=== PATIENT | female | born 1990 | race Two or more races ===

== ENCOUNTER 2018-02-08 04:00 | Inpatient (IN) | payer MEDICAID ==
[2018-02-08] VITALS (10 sets, daily range): BP systolic 111–139; BP diastolic 60–89
[~2018-02-08] VITALS: Ht 165.1 cm; Wt 72.6 kg
[~2018-02-08 04:00] MED LIST: PREN-96 PO
[2018-02-08] MEDS: LACTATED RINGER'S 1,000 ML IV SCH ×3 (04:15→20:15)
[2018-02-08 05:35] LABS: Basophils # (auto) 0.1 uL; Eosinophils # (auto) 0.1 uL; Eosinophils % (auto) 0.6 % (0.0-7.0); Hemoglobin 10.9 g/dL (12.2-16.2); Mean Corpuscular Volume 75.1 fL (80.0-100.0); Monocytes # (auto) 0.6 uL; Neutrophils # (auto) 6.7 uL; Nucleated Red Blood Cells % 0.2 %
[2018-02-08 05:38] LABS: Basophils % (auto) 1.1 % (0.0-2.0); Hematocrit 33.3 % (36.0-46.0); Lymphocytes # (auto) 3.7 uL; Lymphocytes % (auto) 33.3 % (10.0-50.0); Mean Corpuscular Hemoglobin 24.5 pg (28.0-32.0); Mean Corpuscular Hgb Conc. 32.6 g/dL (32.0-36.0); Platelet Count (auto) 304 10^3/uL (140-450); Red Blood Cells 4.43 10^6/uL (4.0-5.20); Red Cell Distribution Width 16.1 % (11.8-14.3); White Blood Cell 11.1 10^3/uL (4.4-10.8)
[2018-02-08 05:50] LABS: Urine Bacteria FEW /hpf (None Seen); Urine Blood Negative /uL (Negative); Urine Mucus FEW (None Seen); Urine Specific Gravity 1.022 (1.001-1.035); Urine WBC 7 /hpf (0 - 5)
[2018-02-08 05:51] LABS: INR 0.87 (0.9-1.15); Partial Thromboplastin Time 24.3 sec (23.78-33.04); Prothrombin Time 9.4 sec (9.27-12.13)
[2018-02-08 06:01] LABS: Albumin 2.7 g/dL (3.4-5.0); BUN/Creatinine Ratio 17.3; Bilirubin, Total 0.3 mg/dL (0.2-1.0); Calcium 8.9 mg/dL (8.5-10.1); Potassium 3.7 mmol/L (3.5-5.1); Total Protein 7.1 g/dL (6.4-8.2)
[2018-02-08] MEDS ORDERED: TETRACAINE 1% INJ 2 ML VIAL IJ ONE (07:22)
[2018-02-08] MEDS ORDERED: MORPHINE SULF(PF) 0.5MG/ML 10ML VIAL ONE (07:23)
[2018-02-08] MEDS ORDERED: fentaNYL CITRATE 100 MCG/2 ML VL ONE (07:23)
[2018-02-08] MEDS ORDERED: CLINDAMYCIN 600MG IV 50 ML IV ONE (07:55)
[2018-02-08] MEDS ORDERED: LACT. RINGERS/OXYTOCIN 20UNITS 1,000 ML IV SCH (08:09)
[2018-02-08] MEDS ORDERED: KETOROLAC TROMETH 30 MG/ML 1ML VIAL IV PRN (08:15)
[2018-02-08] MEDS ORDERED: ONDANSETRON HCL 4 MG/2 ML VIAL IV PRN ×2 (08:15→08:45)
[2018-02-08] MEDS ORDERED: MEPERIDINE HCL (50 MG/ML) 1 ML VIAL IM PRN (08:30)
[2018-02-08] MEDS ORDERED: PROMETHAZINE HCL 25 MG/ML 1ML IV PRN (08:30)
[2018-02-08] MEDS ORDERED: diphenhdrAMINE HCL 50 MG/1 ML VL IV PRN (08:45)
[2018-02-08] MEDS ORDERED: NALOXONE HCL 0.4 MG/ML VIAL IV PRN (08:45)
[2018-02-08] MEDS ORDERED: CLINDAMYCIN 900MG IV 50 ML IV SCH (09:00)
[2018-02-08] MEDS: CLINDAMYCIN 900MG IV 50 ML IV SCH ×2 (16:07→23:50)
[2018-02-08] MEDS: KETOROLAC TROMETH 30 MG/ML 1ML VIAL IV PRN ×2 (16:08→22:42)
[2018-02-08 20:19] LABS: Basophils # (auto) 0 uL; Basophils % (auto) 0.3 % (0.0-2.0); Eosinophils # (auto) 0 uL; Mean Corpuscular Hemoglobin 24.1 pg (28.0-32.0)
[2018-02-08 20:22] LABS: Eosinophils % (auto) 0.1 % (0.0-7.0); Hematocrit 30.7 % (36.0-46.0); Hemoglobin 9.7 g/dL (12.2-16.2); Lymphocytes # (auto) 2.4 uL; Mean Corpuscular Hgb Conc. 31.7 g/dL (32.0-36.0); Mean Corpuscular Volume 75.8 fL (80.0-100.0); Monocytes # (auto) 0.6 uL; Monocytes % (auto) 4.6 % (0.0-12.0); Neutrophils # (auto) 10.5 uL; Platelet Count (auto) 298 10^3/uL (140-450); Red Blood Cells 4.04 10^6/uL (4.0-5.20); Red Cell Distribution Width 16.5 % (11.8-14.3); White Blood Cell 13.6 10^3/uL (4.4-10.8)
[2018-02-09 03:00] VITALS: BP 118/81
[2018-02-09] MEDS: LACTATED RINGER'S 1,000 ML IV SCH ×3 (04:15→20:15)
[2018-02-09 05:06] LABS: RPR Non Reactive (Non Reactive)
[2018-02-09] MEDS: KETOROLAC TROMETH 30 MG/ML 1ML VIAL IV PRN (05:33)
[2018-02-09 07:23] LABS: Basophils # (auto) 0 uL; Basophils % (auto) 0.3 % (0.0-2.0); Eosinophils # (auto) 0 uL; Eosinophils % (auto) 0.2 % (0.0-7.0); Hemoglobin 9.9 g/dL (12.2-16.2); Lymphocytes # (auto) 1.8 uL; Monocytes # (auto) 0.6 uL; Neutrophils # (auto) 10.9 uL; Platelet Count (auto) 304 10^3/uL (140-450)
[2018-02-09 07:25] LABS: Hematocrit 30.6 % (36.0-46.0); Lymphocytes % (auto) 13.8 % (10.0-50.0); Mean Corpuscular Hemoglobin 24.3 pg (28.0-32.0); Mean Corpuscular Hgb Conc. 32.4 g/dL (32.0-36.0); Mean Corpuscular Volume 74.8 fL (80.0-100.0); Monocytes % (auto) 4.1 % (0.0-12.0); Neutrophils % (auto) 81.6 % (37.0-80.0); Nucleated Red Blood Cells % 0.1 %; Red Blood Cells 4.08 10^6/uL (4.0-5.20); Red Cell Distribution Width 16.4 % (11.8-14.3); White Blood Cell 13.4 10^3/uL (4.4-10.8)
[2018-02-09 07:27] VITALS: BP 114/69
[2018-02-09] MEDS: CLINDAMYCIN 900MG IV 50 ML IV SCH ×2 (08:00→16:00)
[2018-02-09] MEDS ORDERED: HYDROcodone-ACET 5/325MG TAB PO PRN (08:15)
[2018-02-09] MEDS ORDERED: BISACODYL 10 MG RECT SUPP PR PRN (08:15)
[2018-02-09] MEDS: FERROUS SULFATE 325 MG TAB PO SCH ×2 (09:53→22:00)
[2018-02-09] MEDS: DOCUSATE SOD 100 MG CAP PO SCH ×2 (09:53→22:00)
[2018-02-09] MEDS: DOCUSATE CALCIUM 240 MG CAP PO SCH (09:54)
[2018-02-09 11:15] VITALS: BP 114/72
[2018-02-09] MEDS: SIMETHICONE 80 MG CHEWABLE TABLET PO SCH ×3 (12:00→22:00)
[2018-02-09] MEDS: HYDROcodone-ACET 5/325MG TAB PO PRN (13:50)
[2018-02-09 14:30] VITALS: BP 122/85
[2018-02-09 19:00] VITALS: BP 128/73
[2018-02-09] MEDS: IBUPROFEN 800 MG TAB PO PRN (20:35)
[2018-02-09 23:00] VITALS: BP 114/69
[2018-02-10] MEDS: CLINDAMYCIN 900MG IV 50 ML IV SCH
[2018-02-10] MEDS: HYDROcodone-ACET 5/325MG TAB PO PRN ×2 (03:16→17:02)
[2018-02-10 03:30] VITALS: BP 124/78
[2018-02-10] MEDS: LACTATED RINGER'S 1,000 ML IV SCH ×2 (04:08→20:15)
[2018-02-10] MEDS: SIMETHICONE 80 MG CHEWABLE TABLET PO SCH ×4 (05:40→22:30)
[2018-02-10] MEDS: IBUPROFEN 800 MG TAB PO PRN ×2 (05:40→13:54)
[2018-02-10 06:55] VITALS: BP 127/77
[2018-02-10] MEDS: DOCUSATE SOD 100 MG CAP PO SCH ×2 (09:45→22:30)
[2018-02-10] MEDS: FERROUS SULFATE 325 MG TAB PO SCH ×2 (09:45→22:30)
[2018-02-10] MEDS: DOCUSATE CALCIUM 240 MG CAP PO SCH (09:45)
[2018-02-10 11:00] VITALS: BP 122/86
[2018-02-10 15:00] VITALS: BP 124/77
[2018-02-10 19:00] VITALS: BP 123/76
[2018-02-10 23:00] VITALS: BP 112/72
[2018-02-11] MEDS: IBUPROFEN 800 MG TAB PO PRN (02:50)
[2018-02-11 03:00] VITALS: BP 107/65
[2018-02-11] MEDS: LACTATED RINGER'S 1,000 ML IV SCH (04:15)
[2018-02-11] MEDS: SIMETHICONE 80 MG CHEWABLE TABLET PO SCH (05:35)
[2018-02-11] MEDS: HYDROcodone-ACET 5/325MG TAB PO PRN (05:35)
[2018-02-11 06:36] VITALS: BP 129/85
== END 2018-02-11 09:55 | disposition home or self-care (01) | DRG 540 ==
LOC: LDRP 04:00
PROVIDERS: ADMIT Obstetrics & Gynecology; ATTEND Obstetrics & Gynecology
PROC: 10D00Z1 Extraction of Products of Conception, Low, Open Approach (ICD-10-PCS; principal; 2018-02-08 07:25)
DX: O34.211 Maternal care for low transverse scar from previous cesarean delivery (principal); O69.81X0 Labor and delivery complicated by cord around neck, without compression, not applicable or unspecified; Z37.0 Single live birth; Z3A.39 39 weeks gestation of pregnancy; Z88.0 Allergy status to penicillin
CPT/HCPCS: 36415; 51702; 59025; 80053; 81001; 85025; 85610; 85730; 86592; 86850; 86900; 86901; 94760; 96365; 96366; 96374; 96375; J1885; J3490

== ENCOUNTER → 2020-05-15 | Outpatient (CLI) | payer MEDICAID ==
[~2020-05-15] MED LIST changes: +CEPH250C PO
--- NOTE | 2020-05-15 10:23 | NUR ---
PT CONSENTED FOR PRE OP COVID TESTING, COVID IN HOUSE SPECIMEN COLLECTED.
== END | disposition home or self-care (01) ==
LOC: LDRP 09:54 → UNDOADMOB 09:54 → LDRP 09:55 → XYW 10:00 → UNDODISOB 10:15 → EDSTATUS 05-30 11:07
PROVIDERS: ATTEND Specialist
DX: Z20.828 Contact with and (suspected) exposure to other viral communicable diseases (principal)
CPT/HCPCS: G0378

== ENCOUNTER 2020-05-17 09:35 | Observation (INO) | payer MEDICAID ==
[~2020-05-17 09:35] MED LIST changes: -CEPH250C PO
[2020-05-17] MEDS ORDERED: CEPH250C PO (10:53)
== END 2020-05-17 10:54 | disposition home or self-care (01) ==
LOC: LDRP 09:35
PROVIDERS: ADMIT Specialist; ATTEND Specialist
DX: O46.93 Antepartum hemorrhage, unspecified, third trimester (principal); Z3A.38 38 weeks gestation of pregnancy
CPT/HCPCS: 59025; 81002; G0378

== ENCOUNTER 2020-05-20 08:41 | Inpatient (IN) | payer MEDICAID ==
[2020-05-20] VITALS (14 sets, daily range): BP systolic 90–123; BP diastolic 53–93
[~2020-05-20] VITALS: Ht 165.1 cm; Wt 68.0 kg
[~2020-05-20 08:41] MED LIST changes: +CEPH250C PO
[2020-05-20] MEDS ORDERED: LACTATED RINGER'S 1,000 ML IV ONE (09:00)
[2020-05-20 09:45] LABS: Hemoglobin 10.4 g/dL (12.2-16.2)
[2020-05-20 09:49] LABS: Basophils # (auto) 0.1 10 ^3/uL (0-0.2); Basophils % (auto) 0.5 % (0.0-2.0); Eosinophils # (auto) 0.1 10 ^3/uL (0-0.8); Eosinophils % (auto) 1.2 % (0.0-7.0); Hematocrit 32.6 % (36.0-46.0); Lymphocytes % (auto) 18.3 % (10.0-50.0); Mean Corpuscular Hemoglobin 23.5 pg (28.0-32.0); Mean Corpuscular Volume 73.5 fL (80.0-100.0); Monocytes # (auto) 0.5 10 ^3/uL (0-1.3); Monocytes % (auto) 4.4 % (0.0-12.0); Neutrophils # (auto) 8.2 10 ^3/uL (1.6-8.6); Neutrophils % (auto) 75.6 % (37.0-80.0); Nucleated Red Blood Cells % 0.2 %; Platelet Count (auto) 398 10^3/uL (140-450); Red Blood Cells 4.44 10^6/uL (4.0-5.20); Red Cell Distribution Width 17.1 % (11.8-14.3); White Blood Cell 10.8 10^3/uL (4.4-10.8)
[2020-05-20 10:00] LABS: Albumin 2.5 g/dL (3.4-5.0); Calcium 8.3 mg/dL (8.5-10.1)
[2020-05-20 10:04] LABS: BUN/Creatinine Ratio 17.3; Bilirubin, Total 0.4 mg/dL (0.2-1.0); Total Protein 6.8 g/dL (6.4-8.2)
[2020-05-20 10:05] LABS: Urine Bacteria MOD /hpf (None Seen); Urine Blood 3+ /uL (Negative); Urine Budding Yeast OCCASIONAL /hpf (None Seen); Urine Mucus FEW (None Seen); Urine Specific Gravity 1.025 (1.001-1.035); Urine WBC 44 /hpf (0 - 5)
[2020-05-20 10:34] LABS: INR 0.93 (0.9-1.15); Partial Thromboplastin Time 22.5 sec (23.0-31.2)
[2020-05-20] MEDS ORDERED: TETRACAINE 1% INJ 2 ML VIAL IJ ONE (12:08)
[2020-05-20] MEDS ORDERED: ceFAZolin 1GM/50ML 50 ML IV ONE (12:37)
[2020-05-20] MEDS ORDERED: LACT. RINGERS/OXYTOCIN 20UNITS 1,000 ML IV ONE (13:15)
[2020-05-20] MEDS ORDERED: GUM (CHEWING) 1 GUM CHEW CHEW ONE (13:15)
[2020-05-20] MEDS ORDERED: ACETAMINOPHEN IV 1000 MG/100ML (10MG/ML) IV PRN (13:15)
[2020-05-20] MEDS ORDERED: ONDANSETRON HCL 4 MG/2 ML VIAL IV PRN ×3 (13:15→18:00)
[2020-05-20] MEDS ORDERED: MORPHINE SULFATE 4 MG/ML SYR/VIAL IV PRN (13:15)
[2020-05-20] MEDS ORDERED: NALBUPHINE HCL 10 MG/1ml INJECTION SUBCUT ONE (14:00)
[2020-05-20] MEDS ORDERED: HYDROmorphone HCL 2 MG/ML VL IV PRN (14:00)
[2020-05-20] MEDS ORDERED: NALOXONE HCL 0.4 MG/ML VIAL IV PRN (14:00)
[2020-05-20] MEDS ORDERED: ePHEDrine SULFATE 50 MG/ML AMP IV PRN (14:00)
[2020-05-20] MEDS ORDERED: CLINDAMYCIN 600MG IV 50 ML IV SCH ×2 (14:00)
[2020-05-20] MEDS ORDERED: diphenhdrAMINE HCL 50 MG/1 ML VL IV PRN (14:00)
[2020-05-20] MEDS ORDERED: LABETALOL HCL 5 MG/ML 4ML SYRINGE IV PRN (14:00)
[2020-05-20] MEDS ORDERED: DexAMETHasone SOD PHOS 10MG/1ML VIAL INJ IV PRN (14:00)
[2020-05-20] MEDS ORDERED: MIDAZOLAM HCL 1MG/1ML-2 ML VIAL IV PRN (14:00)
--- NOTE | 2020-05-20 14:45 | NUR ---
Post Op for LDRP: Received patient from PACU via bed to room 108. Patient A/A/Ox4, abdominal binder and bilateral SCD's are in place, IV fluids placed on pump and infusing per order, incisional site dressing clean/dry/intact and Soto Catheter to gravity draining clear yellow urine. Incentive Spirometer at bedside and instruction on proper use with return demonstration done by patient. Infant continues skin to skin.
[2020-05-20] MEDS: KETOROLAC TROMETH 30 MG/ML 1ML VIAL IV PRN (17:19)
[2020-05-20] MEDS: CLINDAMYCIN 600MG IV 50 ML IV SCH (19:27)
[2020-05-20 21:25] LABS: Basophils # (auto) 0.1 10 ^3/uL (0-0.2); Basophils % (auto) 0.8 % (0.0-2.0); Eosinophils # (auto) 0.1 10 ^3/uL (0-0.8); Eosinophils % (auto) 0.5 % (0.0-7.0); Hematocrit 31.3 % (36.0-46.0); Lymphocytes # (auto) 1.6 10 ^3/uL (0.4-5.4); Lymphocytes % (auto) 11.8 % (10.0-50.0); Mean Corpuscular Hemoglobin 23.5 pg (28.0-32.0); Mean Corpuscular Volume 73.5 fL (80.0-100.0); Monocytes # (auto) 0.6 10 ^3/uL (0-1.3); Monocytes % (auto) 4.2 % (0.0-12.0); Neutrophils # (auto) 11.2 10 ^3/uL (1.6-8.6); Neutrophils % (auto) 82.7 % (37.0-80.0); Platelet Count (auto) 350 10^3/uL (140-450); Red Blood Cells 4.25 10^6/uL (4.0-5.20); Red Cell Distribution Width 17.3 % (11.8-14.3); White Blood Cell 13.5 10^3/uL (4.4-10.8)
[2020-05-21] VITALS (11 sets, daily range): BP systolic 101–141; BP diastolic 59–83
[2020-05-21] MEDS: KETOROLAC TROMETH 30 MG/ML 1ML VIAL IV PRN ×3 (00:59→11:35)
--- NOTE | 2020-05-21 03:36 | NUR ---
Ambulation: Patient OOB with standby assistance by RN. Patient ambulated to chair at bedside with steady gait. Pericare done. Clean gown provided and bed linen changed. Patient ambulated back to bed with steady gait and no distress noted.
[2020-05-21 05:06] LABS: RPR Non Reactive (Non Reactive)
[2020-05-21] MEDS: CLINDAMYCIN 600MG IV 50 ML IV SCH ×2 (05:28→05:30)
--- NOTE | 2020-05-21 05:36 | NUR ---
Marquez catheter dc'd Order to discontinue marquez catheter. Marquez dc'd with clean technique following deflation of balloon. Patient tolerated well with no complaints of pain. Continue care. jo care done.
[2020-05-21 06:43] LABS: Eosinophils # (auto) 0.1 10 ^3/uL (0-0.8); Hemoglobin 9.5 g/dL (12.2-16.2); Lymphocytes # (auto) 1.7 10 ^3/uL (0.4-5.4); Monocytes # (auto) 0.5 10 ^3/uL (0-1.3); Monocytes % (auto) 4.6 % (0.0-12.0); Neutrophils % (auto) 79.1 % (37.0-80.0)
[2020-05-21 06:46] LABS: Basophils # (auto) 0.1 10 ^3/uL (0-0.2); Basophils % (auto) 0.5 % (0.0-2.0); Eosinophils % (auto) 1.1 % (0.0-7.0); Hematocrit 29.7 % (36.0-46.0); Lymphocytes % (auto) 14.7 % (10.0-50.0); Mean Corpuscular Hemoglobin 23.9 pg (28.0-32.0); Mean Corpuscular Hgb Conc. 32.1 g/dL (32.0-36.0); Mean Corpuscular Volume 74.5 fL (80.0-100.0); Nucleated Red Blood Cells % 0.1 %; Platelet Count (auto) 328 10^3/uL (140-450); Red Blood Cells 3.99 10^6/uL (4.0-5.20); Red Cell Distribution Width 17.3 % (11.8-14.3); White Blood Cell 11.4 10^3/uL (4.4-10.8)
[2020-05-21] MEDS ORDERED: BISACODYL 10 MG RECT SUPP PR PRN (13:00)
[2020-05-21] MEDS ORDERED: HYDROcodone-ACET 5/325MG TAB PO PRN ×2 (13:00)
[2020-05-21] MEDS ORDERED: CLINDAMYCIN 600MG IV 50 ML IV ONE (14:00)
[2020-05-21] MEDS: IBUPROFEN 800 MG TAB PO PRN (15:55)
[2020-05-21] MEDS ORDERED: ACETAMINOPHEN 325 MG TAB PO PRN (16:45)
--- NOTE | 2020-05-21 16:58 | NUR ---
Dr. Serna notified of pt temp of 102. Orders received for Zosyn q6, tylenol, and repeat cbc.
[2020-05-21] MEDS: SIMETHICONE 80 MG CHEWABLE TABLET PO SCH ×2 (18:08→21:57)
[2020-05-21 18:41] LABS: Basophils # (auto) 0 10 ^3/uL (0-0.2); Eosinophils # (auto) 0 10 ^3/uL (0-0.8); Hemoglobin 10.1 g/dL (12.2-16.2); Lymphocytes # (auto) 1.2 10 ^3/uL (0.4-5.4); Mean Corpuscular Hemoglobin 23.2 pg (28.0-32.0); Monocytes # (auto) 0.4 10 ^3/uL (0-1.3); Neutrophils # (auto) 10.3 10 ^3/uL (1.6-8.6)
[2020-05-21 18:43] LABS: Basophils % (auto) 0.4 % (0.0-2.0); Hematocrit 32.3 % (36.0-46.0); Lymphocytes % (auto) 9.8 % (10.0-50.0); Mean Corpuscular Hgb Conc. 31.4 g/dL (32.0-36.0); Monocytes % (auto) 3.6 % (0.0-12.0); Neutrophils % (auto) 86.2 % (37.0-80.0); Nucleated Red Blood Cells % 0.1 %; Platelet Count (auto) 372 10^3/uL (140-450); Red Blood Cells 4.37 10^6/uL (4.0-5.20); Red Cell Distribution Width 17.4 % (11.8-14.3); White Blood Cell 11.9 10^3/uL (4.4-10.8)
[2020-05-21] MEDS: DOCUSATE SOD 100 MG CAP PO SCH (21:58)
[2020-05-21] MEDS: MEROPENEM 1GM IVPB 100 ML IV SCH (21:59)
[2020-05-21] MEDS: HYDROcodone-ACET 5/325MG TAB PO PRN (23:08)
[2020-05-22] MEDS: IBUPROFEN 800 MG TAB PO PRN ×3 (01:16→17:50)
[2020-05-22 03:11] VITALS: BP 113/71
[2020-05-22] MEDS: MEROPENEM 1GM IVPB 100 ML IV SCH ×3 (05:58→22:19)
[2020-05-22] MEDS: HYDROcodone-ACET 5/325MG TAB PO PRN ×2 (05:58→22:31)
[2020-05-22 06:40] VITALS: BP 122/79
[2020-05-22] MEDS: SIMETHICONE 80 MG CHEWABLE TABLET PO SCH ×4 (07:27→22:19)
--- NOTE | 2020-05-22 08:25 | NUR ---
called dr. macedo to make her aware patient iv infiltrated and no iv access and medication merrem 1 gram q8 hours did not finish . per dr. macedo start another iv and finish medication and order a cbc. orders carried out
[2020-05-22 08:58] LABS: Eosinophils # (auto) 0 10 ^3/uL (0-0.8); Neutrophils % (auto) 74.3 % (37.0-80.0); Red Cell Distribution Width 17.6 % (11.8-14.3)
[2020-05-22 09:00] LABS: Basophils # (auto) 0.1 10 ^3/uL (0-0.2); Basophils % (auto) 0.6 % (0.0-2.0); Eosinophils % (auto) 0.6 % (0.0-7.0); Hematocrit 31.8 % (36.0-46.0); Hemoglobin 10.2 g/dL (12.2-16.2); Lymphocytes # (auto) 1.6 10 ^3/uL (0.4-5.4); Mean Corpuscular Hemoglobin 23.6 pg (28.0-32.0); Mean Corpuscular Hgb Conc. 32.2 g/dL (32.0-36.0); Mean Corpuscular Volume 73.3 fL (80.0-100.0); Monocytes # (auto) 0.4 10 ^3/uL (0-1.3); Monocytes % (auto) 4.5 % (0.0-12.0); Nucleated Red Blood Cells % 0.1 %; Platelet Count (auto) 370 10^3/uL (140-450); Red Blood Cells 4.34 10^6/uL (4.0-5.20); White Blood Cell 8.1 10^3/uL (4.4-10.8)
--- NOTE | 2020-05-22 09:00 | NUR ---
IV insertion IV access obtained, via clean sterile technique by inserting 20 gauge catheter in right AC at 0900 after 2 attempts. One unsuccessful attempt by Elizabeth Ann RN and one successful attempt by Maddie Taylor RN. IV secured properly. No trauma to site. Patient tolerated procedure well. Signed: 05/22/20 at 0947 by ANGELICA BAILEY SN <Co-Signature Required> Co-Signed: 05/22/20 at 0947 by Heber Taylor RN
[2020-05-22] MEDS: DOCUSATE SOD 100 MG CAP PO SCH ×2 (10:00→22:00)
[2020-05-22 10:40] VITALS: BP 120/76
[2020-05-22 15:00] VITALS: BP 118/83
--- NOTE | 2020-05-22 16:34 | NUR ---
CBC results given to Dr Serna
[2020-05-22 19:15] VITALS: BP 120/82
[2020-05-22 22:35] VITALS: BP 105/68
[2020-05-23] MEDS: IBUPROFEN 800 MG TAB PO PRN (02:42)
[2020-05-23 02:44] VITALS: BP 111/64
[2020-05-23] MEDS: SIMETHICONE 80 MG CHEWABLE TABLET PO SCH (05:46)
[2020-05-23] MEDS: MEROPENEM 1GM IVPB 100 ML IV SCH (05:46)
[2020-05-23] MEDS: HYDROcodone-ACET 5/325MG TAB PO PRN (05:47)
[2020-05-23 06:45] VITALS: BP 117/76
--- NOTE | 2020-05-23 07:25 | NUR ---
Discharge: Discharge instructions given as ordered. Pt encouraged to follow up with THREAT ANALYST as instructed. All questions and concerns addressed. Patient verbalized understanding. Medication reconciliation completed and copy given to patient. PT refuses vaccinations.
--- NOTE | 2020-05-23 08:00 | NUR ---
Report received from Naomy Zhao RN
--- NOTE | 2020-05-23 09:06 | NUR ---
Discharge: Patient taken to vehicle via ambulation with all personal belongings, accompanied by staff and family member. No distress noted at time of departure, no adverse changes in status since initial assessment.
== END 2020-05-23 09:06 | disposition home or self-care (01) | DRG 540 ==
LOC: LDRP 08:41
PROVIDERS: ADMIT Obstetrics & Gynecology; ATTEND Obstetrics & Gynecology
PROC: 10D00Z1 Extraction of Products of Conception, Low, Open Approach (ICD-10-PCS; principal; 2020-05-20 12:21)
DX: O99.214 Obesity complicating childbirth (principal); O34.211 Maternal care for low transverse scar from previous cesarean delivery; Z3A.39 39 weeks gestation of pregnancy; Z37.0 Single live birth; Z88.0 Allergy status to penicillin; E66.9 Obesity, unspecified; O99.02 Anemia complicating childbirth; D64.9 Anemia, unspecified
CPT/HCPCS: 36415; 59025; 80053; 81001; 81002; 85025; 85610; 85730; 86592; 86850; 86900; 86901; 94762; 96360; 96365; 96366; G0378; J0690; J1885; J2185; J3490

== ENCOUNTER 2025-02-19 17:00 | Emergency (ER) | payer MEDICAID ==
[~2025-02-19] VITALS: Ht 165.1 cm; Wt 77.9 kg
--- NOTE | 2025-02-19 18:04 | ED.PDOC ---
GI ASSESSMENT HPI Comments 34 y.o female presents to the ED for a chief complaint of abdominal pain associated with nausea, vomiting, body aches, chills, headaches that started 4-5 days ago. Patient reports today she felt a sudden sharp pain localized to her RLQ prompting her to come into the ED today with last vomiting episode prior to ED arrival. Patient denies any hematemesis, bloody stool, fever, constipation. Patient at this time states pain has subsided, was a 4/10 on the pain scale radiating to her back. She denies any medical history. Patient took an at home test which resulted negative. Chief Complaint: Abdominal Pain Time Seen by MD: 17:58 Primary Care Provider: CECILIES Reviewed Notes: Nurses Notes, Medications, Allergies Allergies: Coded Allergies: Penicillin V (Verified Allergy, Unknown, 06/30/16) Home Meds Active Scripts Ondansetron Odt 4MG Tab (ZOFRAN PO) 4 Mg Tb, 4 MG PO Q8HP PRN for 5 Days, #15 TAB ODT TAB-DISSOLVE IN MOUTH, THEN SWALLOW Prov:RYAN WERNER MD 02/19/25 Levofloxacin Hemihydrate (LEVAQUIN 500 MG) 500 Mg Tab, 1 TAB PO DAILY, #10 TAB Prov:RYAN WERNER MD 02/19/25 Reported Medications Cephalexin (KEFLEX CAPSULE) 250 Mg Cp, 250 MG PO Q6HR for UTI 05/17/20 Vit W/ Ferrous Fumara ( One Daily) Daily Tab, 1 TAB PO DAILY for , #90 TAB 3 Refills 07/02/16 Information Source: Patient Mode of Arrival: Ambulatory Timing: Days (5) Duration: Since onset Quality: Sharp Vomitus: Bilious Stool: Normal Severity: Moderate Recent: None Recent Hx of: None Pain Location: Diffuse, RLQ Modifying Factors: Nothing Associated sign and symptoms: Nausea, Vomiting, Abdominal Pain Past Medical History PAST MEDICAL HISTORY: Denies Surgical History: MANAGER LEASING History: No Pertinent MANAGER LEASING History Family History Family History: Reviewed,noncontributory to illness Social History Smoker: Non-Smoker Alcohol: Occasionally Drugs: Denies Drug Use Lives In: Home Constitutional: reports: chills; denies: diaphoresis, fatigue, fever, malaise, sweats, weakness, others EENTM: denies: blurred vision, double vision, ear bleeding, ear discharge, ear drainage, ear pain, ear ringing, eye pain, eye redness, hearing loss, mouth pain, mouth swelling, nasal discharge, nose bleeding, nose congestion, nose pain, photophobia, tearing, throat pain, throat swelling, voice changes, others Respiratory: denies: cough, hemoptysis, orthopnea, SOB at rest, shortness of breath, SOB with excertion, stridor, wheezing, others Cardiovascular: denies: chest pain, dizzy spells, diaphoresis, Dyspnea on exertion, edema, irregular heart beat, left arm pain, lightheadedness, palpitations, PND, syncope, others Gastrointestinal: reports: abdominal pain, nausea, vomiting; denies: abdomen distended, blood streaked bowels, constipated, diarrhea, dysphagia, difficulty swallowing, hematemesis, melena, poor appetite, poor fluid intake, rectal bleeding, rectal pain, others Genitourinary: denies: abnormal vagina bleeding, burning, dyspareunia, dysuria, flank pain, frequency, hematuria, incontinence, pain, , vagina discharge, urgency, others Neurological: reports: headache; denies: dizziness, fainting, left sided numbness, left sided weakness, numbness, paresthesia, pre-existing deficit, right sided numbness, right sided weakness, seizure, speech problems, tingling, tremors, weakness, others Musculoskeletal: reports: back pain, muscle pain; denies: gout, joint pain, joint swelling, muscle stiffness, neck pain, others Integumetry: denies: bruises, change in color, change in hair/nails, dryness, laceration, lesions, lumps, rash, wounds, others Allergic/Immunocompromised: denies: Difficulty Healing, Frequent Infections, Hives, Itching, others Hematologic/Lymphatic: denies: anemia, blood clots, easy bleeding, easy bruising, swollen glands, others Endocrine: denies: excessive hunger, excessive sweating, excessive thirst, excessive urination, flushing, intolerance to cold, intolerance to heat, unexplained weight gain, unexplained weight loss, others Psychiatric: denies: anxiety, bipolar disorder, depression, hopeless, panic disorder, schizophrenia, sleepless, suicidal, others All Other Systems: Reviewed and Negative Physical Exam General Appearance: Mild Distress HEENT: Normal ENT Inspection, Pharynx Normal, TMs Normal Neck: Full Range of Motion, Non-Tender, Normal, Normal Inspection Respiratory: Chest Non-Tender, Lungs Clear, No Accessory Muscle Use, No Respiratory Distress, Normal Breath Sounds Cardiovascular: No Edema, No JVD, No Murmur, No Gallop, Normal Peripheral Pulses, Regular Rate/Rhythm Breast Exam: Deferred Gastrointestinal: No Organomegaly, No Pulsatile Mass, Normal Bowel Sounds, Soft, Suprapubic, Tenderness Genitalia: Deferred Pelvic: Deferred Rectal: Deferred Extremities: No calf tenderness, Normal capillary refill, Normal inspection, Normal range of motion, Non-tender, No pedal edema Musculoskeletal : Apperance: Normal Neurologic: Alert, scale attendant II-XII nml as Tested, No Motor Deficits, Normal Affect, Normal Mood, No Sensory Deficits Cerebellar Function: Normal Reflexes: Normal Skin: Dry, Normal Color, Warm Lymphatic: No Adenopathy Was a procedure done? Was a procedure done?: No GI differential Dx Differential Diagnosis: Esophagitis, Gastroenteritis, Inflammatory BD, UTI, Electrolyte Imbalance, Food Poisoning, , Viral, Kidney Stone X-Ray, Labs, Meds, VS Vital Signs Date Time Temp Pulse Resp B/P (MAP) Pulse Ox O2 Delivery O2 Flow Rate FiO2 02/19/25 20:43 99.9 117 18 123/86 (98) 96 99.9 02/19/25 19:13 124 20 128/82 (97) 98 02/19/25 18:30 100.6 126 20 126/69 (88) 100 100.6 02/19/25 18:30 126 20 100 Room Air 02/19/25 17:14 98.1 145 16 128/80 (96) 100 98.1 Lab Test 02/19/25 18:29 02/19/25 18:22 Range/Units Urine Color Yellow Yellow Urine Clarity Turbid H Clear Urine pH 6.5 5.0-9.0 Urine Specific [place] 1.007 1.001-1.035 Urine Protein 1+ H Negative Urine Ketones Negative Negative Urine Blood 2+ H Negative /uL Urine Nitrite 1+ H Negative Urine Bilirubin Negative Negative Urine Urobilinogen Normal Negative mg/dL Urine Leukocyte Esterase 2+ Negative /uL Urine RBC 4 0 - 4 /hpf Urine Microscopic WBC 33 H 0-5 /HPF Urine Squamous Epithelial Cells Few <5 /hpf Urine Bacteria Mod H None Seen /hpf Urine Glucose Normal Normal mg/dL Urine Test Negative Negative White Blood Count 15.9 H 4.4-10.8 10^3/uL Red Blood Count 4.99 4.0-5.20 10^6/uL Hemoglobin 14.4 12.2-16.2 g/dL Hematocrit 42.3 36.0-46.0 % Mean Corpuscular Volume 84.6 80.0-100.0 fL Mean Corpuscular Hemoglobin 28.8 28.0-32.0 pg Mean Corpuscular Hemoglobin Concent 34.0 32.0-36.0 g/dL Red Cell Distribution Width 14.4 H 11.8-14.3 % Platelet Count 292 140-450 10^3/uL Mean Platelet Volume 9.0 6.9-10.8 fL Neutrophils (%) (Auto) 88.4 H 37.0-80.0 % Lymphocytes (%) (Auto) 4.9 L 10.0-50.0 % Monocytes (%) (Auto) 6.5 0.0-12.0 % Eosinophils (%) (Auto) 0.0 0.0-7.0 % Basophils (%) (Auto) 0.2 0.0-2.0 % Neutrophils # (Auto) 14.0 H 1.6-8.6 10 ^3/uL Lymphocytes # (Auto) 0.8 0.4-5.4 10 ^3/uL Monocytes # (Auto) 1.0 0-1.3 10 ^3/uL Eosinophils # (Auto) 0 0-0.8 10 ^3/uL Basophils # (Auto) 0 0-0.2 10 ^3/uL Nucleated Red Blood Cells 0.0 % Sodium Level 132 L 136-145 mmol/L Potassium Level 3.4 L 3.5-5.1 mmol/L Chloride Level 97 L 98-107 mmol/L Carbon Dioxide Level 23 20-31 mmol/L Anion Gap 12 5-15 Blood Urea Nitrogen 9 9-23 mg/dL Creatinine 1.01 0.550-1.02 mg/dL Glomerular Filtration Rate Calc 76 >90 mL/min BUN/Creatinine Ratio 8.9 L 10.0-20.0 Serum Glucose 131 H 74-106 mg/dL Calcium Level 10.1 8.7-10.4 mg/dL Current Medications Medications (Trade) Dose Ordered Sig/Zita Route Start Time Stop Time Status Last Admin Sodium Chloride 1,000 ml @ 1,000 mls/hr Q1H ONCE IVB 02/19/25 18:15 02/19/25 19:14 DC 02/19/25 18:25 Sodium Chloride 1,000 ml @ 1,000 mls/hr Q1H ONCE IV 02/19/25 19:30 02/19/25 20:29 DC 02/19/25 19:27 Levofloxacin/ Dextrose 100 ml @ 100 mls/hr ONCE ONCE IV 02/19/25 20:30 02/19/25 21:29 DC 02/19/25 20:41 IV Hep-Lock was established The patient was given a 1 L bolus of normal saline We repeated the dose of normal saline The patient was given Levaquin 500 mg IV piggyback for the UTI that was noted The patient has an elevated white blood cell count of 15.9 The rest of the CBC and chemistry panel are within normal limits The patient is being discharged on Levaquin The patient will return to the emergency department's condition worsens Images Reviewed?: Images reviewed and evaluated by me Time of 1ST Reevaluation: 18:04 Reevaluation 1ST: Unchanged Patient Education/Counseling: Diagnosis, Treatment, Prognosis, Need For Follow Up Family Education/Counseling: No Family Present SEPSIS Sepsis Screen Date sepsis recognized/suspect: Feb 19, 2025 Time Sepsis recognized/suspect: 1709 Recent Procedure: No On Antibiotic Therapy: No Respiratory Rate >20: No Heart Rate >90: Yes Temp<36 C (96.8 F) or >38.3 C: No SBP <90 or MAP <65 mmHG: No New Acute Mental Status Change: No Is the patient on CPAP, BIPAP,: No Physician Orders Saline Lock (02/19/25 17:23) Ct Ab Pel Wo Con-No Oral Or Iv (02/19/25 18:09) Heplock Iv (02/19/25 18:09) Hide Curer (02/19/25 18:09) Blood Pressure (02/19/25 18:09) Pulse Oximetry (02/19/25 18:09) Vital Signs Date Time Temp Pulse Resp B/P (MAP) Pulse Ox O2 Delivery O2 Flow Rate FiO2 02/19/25 20:43 99.9 117 18 123/86 (98) 96 99.9 02/19/25 19:13 124 20 128/82 (97) 98 02/19/25 18:30 100.6 126 20 126/69 (88) 100 100.6 02/19/25 18:30 126 20 100 Room Air 02/19/25 17:14 98.1 145 16 128/80 (96) 100 98.1 Laboratory Tests Test 02/19/25 18:22 White Blood Count 15.9 10^3/uL (4.4-10.8) H Medications Medications Dose Ordered Sig/Zita Route Start Time Stop Time Status Last Admin Dose Admin Levofloxacin/ Dextrose 100 ml @ 100 mls/hr ONCE ONCE IV 02/19/25 20:30 02/19/25 21:29 DC 02/19/25 20:41 Sodium Chloride 1,000 ml @ 1,000 mls/hr Q1H ONCE IV 02/19/25 19:30 02/19/25 20:29 DC 02/19/25 19:27 Sodium Chloride 1,000 ml @ 1,000 mls/hr Q1H ONCE IVB 02/19/25 18:15 02/19/25 19:14 DC 02/19/25 18:25 Departure 1 Departure Time of Disposition: 21:38 Impression: Primary Impression: UTI (urinary tract infection) Qualified Codes: N30.00 - Acute cystitis without hematuria Disposition: 01 HOME / SELF CARE / HOMELESS Condition: Fair e-Prescriptions Ondansetron Odt 4MG Tab (ZOFRAN PO) 4 Mg Tb 4 MG PO Q8HP PRN for 5 Days, #15 TAB ODT TAB-DISSOLVE IN MOUTH, THEN SWALLOW Prov: RYAN WERNER MD 02/19/25 Levofloxacin Hemihydrate (LEVAQUIN 500 MG) 500 Mg Tab 1 TAB PO DAILY, #10 TAB Prov: RYAN WERNER MD 02/19/25 Discharged With: Self Critical Care Note Critical Care Time?: No Stability Stability form required: No I personally scribed for RYAN WERNER MD ([email or web address]) on 02/19/25 at 18:04. Electronically submitted by Melissa Nguyen ([facility]). RYAN WERNER MD Feb 19, 2025 18:04
[2025-02-19] MEDS: SODIUM CHLORIDE 0.9% 1,000 ML IVB ONE (18:25)
[2025-02-19 18:37] LABS: Basophils # (auto) 0 10 ^3/uL (0-0.2); Basophils % (auto) 0.2 % (0.0-2.0); Eosinophils # (auto) 0 10 ^3/uL (0-0.8); Hematocrit 42.3 % (36.0-46.0); Hemoglobin 14.4 g/dL (12.2-16.2); Lymphocytes # (auto) 0.8 10 ^3/uL (0.4-5.4); Lymphocytes % (auto) 4.9 % (10.0-50.0); Mean Corpuscular Hemoglobin 28.8 pg (28.0-32.0); Mean Corpuscular Volume 84.6 fL (80.0-100.0); Monocytes % (auto) 6.5 % (0.0-12.0); Neutrophils % (auto) 88.4 % (37.0-80.0); Platelet Count (auto) 292 10^3/uL (140-450); Red Blood Cells 4.99 10^6/uL (4.0-5.20); Red Cell Distribution Width 14.4 % (11.8-14.3); White Blood Cell 15.9 10^3/uL (4.4-10.8)
[2025-02-19 18:44] LABS: Anion Gap 12 (5-15); Calcium 10.1 mg/dL (8.7-10.4); Carbon Dioxide 23 mmol/L (20-31)
[2025-02-19 18:47] LABS: Chloride 97 mmol/L (98-107); Potassium 3.4 mmol/L (3.5-5.1); Sodium 132 mmol/L (136-145)
[2025-02-19 18:50] LABS: BUN/Creatinine Ratio 8.9 (10.0-20.0); Blood Urea Nitrogen 9 mg/dL (9-23)
[2025-02-19 18:52] LABS: Glucose 131 mg/dL (74-106)
[2025-02-19] MEDS: SODIUM CHLORIDE 0.9% 1,000 ML IV ONE (19:27)
[2025-02-19 20:05] LABS: Urine Bacteria MOD /hpf (None Seen); Urine Blood 2+ /uL (Negative); Urine Clarity Turbid (Clear); Urine Color Yellow (Yellow); Urine Protein, UAD 1+ (Negative); Urine Specific Gravity 1.007 (1.001-1.035); Urine Squamous Epithelial Cell FEW /hpf (<5); Urine Urobilinogen Normal (Negative); Urine WBC 33 /HPF (0-5); Urine pH 6.5 (5.0-9.0)
[2025-02-19] MEDS: levoFLOXacin 500MG 100 ML IV ONE (20:41)
--- NOTE | 2025-02-19 21:33 | DVH ---
Exam: CT CT AB PEL WO CON-NO ORAL OR IV History: pain Comparison Study: None Technique: Multidetector spiral CT of the abdomen was performed from lung bases to pubic symphysis. Imaging was performed without IV contrast. Axial, coronal and sagittal multiplanar reformats were ob tained from the axial data set by the technologist. Radiation Dose : 1. Abdomen/Pelvis: CTDIvol 13.28 mGy, DLP 755.12 mGy*cm. Findings: Evaluation of solid organs is limited due to lack of intravenous contrast use. Lung Bases: No abnormality demonstrated. Liver: Liver demonstrates diffuse decreased density consistent with fatty infiltration. No focal les ions noted. Gallbladder and Biliary Tree: No abnormality demonstrated. Spleen: No abnormality demonstrated. Pancreas: No abnormality demonstrated. Adrenal Glands: No abnormality demonstrated. Kidneys: No abnormality demonstrated. Bladder: Grossly unremarkable for degree of distention. Bowel: Moderate-sized hiatal hernia present. Stomach otherwise appears grossly unremarkable. No abnor katie dilated or thick-walled loops of large or small bowel noted. Appendix appears unremarkable. Ascites: Absent Lymphadenopathy: No evidence of lymphadenopathy. Abdominal Wall and Mesentery: Unremarkable. Vasculature: Unremarkable. Pelvic Organs: Unremarkable Musculoskeletal: No aggressive bony lesions or fracture. IMPRESSION: No acute abdominal or pelvic findings. Radiation optimization: All CT scans at this facility use at least one of these dose optimization ketty hniques: automated exposure control mA and/or kV adjustment per patient size (includes targeted exam s where dose is matched to clinical indication) or iterative reconstruction.
[2025-02-19] MEDS ORDERED: ZOFR4T PO (21:41)
[2025-02-19] MEDS ORDERED: LEVO500T91 PO (21:41)
[2025-02-19 21:57] VITALS: BP 130/80; PULSE 110; RESP 22; TEMP 98.7; O2SAT 98
[2025-02-19] MEDS: SODIUM CHLORIDE 0.9% 500 ML IV ONE (22:06)
== END 2025-02-19 22:17 | disposition home or self-care (01) ==
LOC: ER 17:03
DX: N39.0 Urinary tract infection, site not specified (principal); F10.90 Alcohol use, unspecified, uncomplicated; Z98.890 Other specified postprocedural states; Z88.0 Allergy status to penicillin; Z79.899 Other long term (current) drug therapy; Y90.9 Presence of alcohol in blood, level not specified
CPT/HCPCS: 36415; 74176; 80048; 81001; 81025; 85025; 96361; 96365; 99285; J1956; J7030; J7040